=== PATIENT | female | born 1960 | race Caucasian/White ===

== ENCOUNTER 2025-01-17 07:22 | Day surgery (SDC) | payer OTHER ==
[~2025-01-17] VITALS: Ht 157.5 cm; Wt 71.7 kg
[~2025-01-17 07:22] MED LIST: ACETAMINOPHEN 1000MG/100ML IV BAG As Ordered ONE; GLYCOPYRROLATE INJ 0.2 MG/ML 2 ML VIAL As Ordered ONE; KETOROLAC 30 MG/ML 1ML VIAL As Ordered ONE; LIDOCAINE 2% 100MG/5ML SDV (FOR ANES.) As Ordered ONE; MIDAZOLAM INJ 2MG/2ML VIAL As Ordered ONE; ONDANSETRON 4MG 2ML VIAL As Ordered ONE; fentaNYL 100 MCG/2 ML INJECTION As Ordered ONE; propofoL 200 MG/20 ML VIAL As Ordered ONE
[2025-01-17] MEDS ORDERED: ceFAZolin SODIUM 2 GM in DEXTROSE 5% (D5W) ADV/MINI-BAG 50 ML IV ONE (08:00)
[2025-01-17] MEDS: ceFAZolin SODIUM 2 GM VIAL As Ordered ONE (08:31)
[2025-01-17] MEDS: BACITRACIN OINTMENT 30GM TUBE As Ordered ONE (08:55)
[2025-01-17] MEDS ORDERED: PERC5TAB12 PO (09:18)
[2025-01-17 10:04] VITALS: BP 109/60; TEMP 96.5; O2SAT 97
== END 2025-01-17 10:31 | disposition home or self-care (01) ==
LOC: M SDC 07:22
PROVIDERS: ATTEND Orthopaedic Surgery Hand Surgery
DX: S62.615A Displaced fracture of proximal phalanx of left ring finger, initial encounter for closed fracture (principal); S62.617A Displaced fracture of proximal phalanx of left little finger, initial encounter for closed fracture; W19.XXXA Unspecified fall, initial encounter; Y92.89 Other specified places as the place of occurrence of the external cause; Y93.9 Activity, unspecified; E11.9 Type 2 diabetes mellitus without complications; Z79.84 Long term (current) use of oral hypoglycemic drugs; E78.5 Hyperlipidemia, unspecified; K21.9 Gastro-esophageal reflux disease without esophagitis; Z79.899 Other long term (current) drug therapy
CPT/HCPCS: 26725; 26727; 76000; J0131; J0665; J0690; J1100; J1596; J1885; J2250; J2405; J3010

== ENCOUNTER → 2025-01-28 | Outpatient (CLI) | payer OTHER ==
[~2025-01-28] MED LIST changes: -ACETAMINOPHEN 1000MG/100ML IV BAG As Ordered ONE; -GLYCOPYRROLATE INJ 0.2 MG/ML 2 ML VIAL As Ordered ONE; -KETOROLAC 30 MG/ML 1ML VIAL As Ordered ONE; -LIDOCAINE 2% 100MG/5ML SDV (FOR ANES.) As Ordered ONE; -MIDAZOLAM INJ 2MG/2ML VIAL As Ordered ONE; -ONDANSETRON 4MG 2ML VIAL As Ordered ONE; +PERC5TAB12 PO; -fentaNYL 100 MCG/2 ML INJECTION As Ordered ONE; -propofoL 200 MG/20 ML VIAL As Ordered ONE
== END ==
LOC: M SOG 07:01
PROVIDERS: ATTEND Physician Assistant
DX: S62.647D Nondisplaced fracture of proximal phalanx of left little finger, subsequent encounter for fracture with routine healing (principal); S62.645D Nondisplaced fracture of proximal phalanx of left ring finger, subsequent encounter for fracture with routine healing

== ENCOUNTER → 2025-03-22 | Outpatient (CLI) | payer OTHER | LOC: M SOG 07:08 | PROVIDERS: ATTEND Physician Assistant | DX: S62.647A Nondisplaced fracture of proximal phalanx of left little finger, initial encounter for closed fracture (principal); W18.30XA Fall on same level, unspecified, initial encounter; Y92.009 Unspecified place in unspecified non-institutional (private) residence as the place of occurrence of the external cause ==